=== PATIENT | male | born 1950 | race Caucasian/White ===

== ENCOUNTER 2016-08-31 12:22 | Emergency (ER) | payer BC ==
[~2016-08-31] VITALS: Ht 165.1 cm; Wt 91.6 kg
[2016-08-31 12:28] VITALS: BP_SYST 134
[2016-08-31 13:38] LABS: BASOPHILS # (AUTO) 0.2 K/uL (0.0-0.2); BASOPHILS % (AUTO) 1.8 % (0.0-2.0); EOSINOPHILS # (AUTO) 0.1 K/uL (0.0-0.4); EOSINOPHILS % (AUTO) 0.6 % (0.0-4.0); HEMATOCRIT 46.1 % (36-54); LYMPHOCYTES # (AUTO) 1.5 K/uL (1.0-5.5); LYMPHOCYTES % (AUTO) 14.3 % (20.5-51.5); MEAN CORPUSCULAR HEMOGLOBIN 31 pg (27-31); MEAN CORPUSCULAR HGB CONC 33 % (32-36); MEAN CORPUSCULAR VOLUME 96 fL (79.0-98.0); MONOCYTES # (AUTO) 0.6 K/uL (0.0-1.0); MONOCYTES % (AUTO) 5.2 % (1.7-9.3); NEUTROPHILS # (AUTO) 8.4 K/uL (1.8-7.7); NEUTROPHILS % (AUTO) 78.1 % (40.0-70.0); PLATELET COUNT (AUTO) 194 K/uL (130-430); RED BLOOD CELL COUNT(AUTO) 4.79 MIL/uL (4.2-6.2); RED CELL DISTRIBUTION WIDTH 12.3 % (9.0-15.0); WHITE BLOOD COUNT (AUTO) 10.8 K/uL (4.8-10.8)
[2016-08-31 13:45] LABS: CALCIUM 8.8 mg/dL (8.4-11.0); CREATININE 0.78 mg/dL (0.55-1.30)
[2016-08-31 13:48] LABS: INR 1.1 (0.80-1.20); PROTHROMBIN TIME 11.4 SECS (9.5-12.5)
[2016-08-31 13:50] LABS: ALBUMIN 3.8 g/dL (3.4-4.8); TOTAL BILIRUBIN 0.7 mg/dL (0.0-1.0); TOTAL PROTEIN, SERUM 7.1 g/dL (6.4-8.3)
[2016-08-31 14:26] VITALS: BP_SYST 120
== END 2016-08-31 14:26 | disposition home or self-care (01) ==
LOC: SED 12:22
DX: R04.0 Epistaxis (principal); K21.9 Gastro-esophageal reflux disease without esophagitis; I10 Essential (primary) hypertension; Z97.8 Presence of other specified devices
CPT/HCPCS: 36415; 80053; 84484; 85025; 85610-TC; 85730-TC; 99284

== ENCOUNTER 2021-05-07 17:47 | Emergency (ER) | payer BC ==
[~2021-05-07] VITALS: Ht 167.6 cm; Wt 99.8 kg
[2021-05-07 17:52] VITALS: BP_SYST 119
--- NOTE | 2021-05-07 18:02 | NUR ---
pt presents by self pov using radial saw and cut his right hand by accident. dr hawk at bedside visulaize lac bw 2nd and 3rd digit dorsum of hand
[2021-05-07] MEDS ORDERED: DIPH-TET-PERTUS Vaccine 0.5 ML VIAL (ADACEL) I.M. ONE (18:15)
[2021-05-07] MEDS ORDERED: LIDOCAINE 1% 10 MG/ML, 20 ML MDV INJ ONE (18:30)
--- NOTE | 2021-05-07 19:11 | NUR ---
got report from nicholas the nurse and pt has no sign of distress noted
--- NOTE | 2021-05-07 19:16 | NUR ---
REPORT TO ORLIN FERNANDEZ
--- NOTE | 2021-05-07 20:08 | NUR ---
PATIENT RESTING IN BED WITH EYES OPEN, NO C/O PAIN OR S/S OF DISCOMFORT. PATIENT'S CHEST RISE AND FALL SYMMETRICAL. BED IN LOW AND LOCKED POSITION.
--- NOTE | 2021-05-07 20:34 | NUR ---
DR. DELGADO PERFORMED LACERATION SUTURING. PATIENT TOLERATED PROCEDURE. PATIENT'S RIGHT HAND CLEANED AND DRESSED WITH STERILE GAUZE, UTILIZING ASEPTIC TECHNIQUE. PATIENT STATES PAIN IS "0/10."
[2021-05-07 20:55] VITALS: BP_SYST 115
--- NOTE | 2021-05-07 20:57 | NUR ---
PATIENT VERBALIZED UNDERSTANDING OF AFTERCARE INSTRUCTIONS, NO FURTHER QUESTIONS. PATIENT LEFT WITH ALL BELONGINGS. PATIENT A/OX4, NO C/O PAIN, AND PATIENT HAS STRONG GAIT.
== END 2021-05-07 20:55 | disposition home or self-care (01) ==
LOC: SED 17:47
DX: S61.411A Laceration without foreign body of right hand, initial encounter (principal); I10 Essential (primary) hypertension; K21.9 Gastro-esophageal reflux disease without esophagitis; W45.8XXA Other foreign body or object entering through skin, initial encounter; Y93.89 Activity, other specified; Y92.098 Other place in other non-institutional residence as the place of occurrence of the external cause; Y99.8 Other external cause status
CPT/HCPCS: 12002; 73120; 90471; 90715; 99283; J2001

== ENCOUNTER 2023-03-17 16:32 | Observation (INO) | payer BC ==
[~2023-03-17] VITALS: Ht 165.1 cm; Wt 102.1 kg
[2023-03-17 16:35] VITALS: BP_SYST 158; PULSE 85; RESP 19; TEMP 98; O2SAT 98
[2023-03-17] MEDS ORDERED: TAMS-11 PO ×2 (16:56→20:32)
[2023-03-17] MEDS ORDERED: METO25TA6 PO ×2 (16:56→20:32)
[2023-03-17] MEDS ORDERED: NEU300 PO ×2 (16:56→20:32)
[2023-03-17] MEDS ORDERED: ASPI-859 PO (16:56)
[2023-03-17] MEDS ORDERED: LOSA25TA18 PO (16:56)
[2023-03-17] MEDS ORDERED: HYDR-3917 PO ×2 (16:56→20:32)
[2023-03-17] MEDS ORDERED: LIP40 PO ×2 (16:56→20:32)
[2023-03-17 17:10] LABS: BASOPHILS % (AUTO) 0.5 % (0.0-2.0); EOSINOPHILS % (AUTO) 0.2 % (0.0-4.0); HEMATOCRIT 48.2 % (36-54); HEMOGLOBIN 16.9 g/dL (14.0-18.0); LYMPHOCYTES # (AUTO) 1.5 K/uL (1.0-5.5); LYMPHOCYTES % (AUTO) 16.3 % (20.5-51.5); MEAN CORPUSCULAR HEMOGLOBIN 34 pg (27-31); MEAN CORPUSCULAR HGB CONC 35 % (32-36); MEAN CORPUSCULAR VOLUME 97 fL (79.0-98.0); MONOCYTES # (AUTO) 0.7 K/uL (0.0-1.0); MONOCYTES % (AUTO) 7.5 % (1.7-9.3); NEUTROPHILS # (AUTO) 6.9 K/uL (1.8-7.7); NEUTROPHILS % (AUTO) 75.5 % (40.0-70.0); PLATELET COUNT (AUTO) 223 K/uL (130-430); RED BLOOD CELL COUNT(AUTO) 4.98 MIL/uL (4.2-6.2); RED CELL DISTRIBUTION WIDTH 13.7 % (9.0-15.0); WHITE BLOOD COUNT (AUTO) 9.2 K/uL (4.8-10.8)
[2023-03-17 17:32] LABS: INR 1.1 (0.80-1.20); PROTHROMBIN TIME 11.4 SECS (9.5-12.5)
[2023-03-17 17:37] LABS: ANION GAP 12 (5-15); CALCIUM 9.5 mg/dL (8.4-11.0); CARBON DIOXIDE 26 mmol/L (23-29); CHLORIDE 105 mmol/L (98-107); CREATININE 1.05 mg/dL (0.55-1.30); GLUCOSE 93 mg/dL (74-106); POTASSIUM 3.9 mmol/L (3.5-5.1); SODIUM SERUM 143 mmol/L (136-145); UREA NITROGEN, BLOOD 12 mg/dL (8-21)
[2023-03-17 18:17] LABS: INFLUENZA TYPE A Negative (NEGATIVE); INFLUENZA TYPE B NEGATIVE (NEGATIVE)
[2023-03-17] MEDS ORDERED: ONDANSETRON HCL 4 MG/2 ML VIAL IVP PRN (19:15)
[2023-03-17] MEDS ORDERED: ACETAMINOPHEN 325 MG TABLET PO PRN ×2 (19:15)
[2023-03-17] MEDS ORDERED: ASPIRIN 81 MG TAB.CHEW PO ONE (19:15)
[2023-03-17] MEDS ORDERED: HYDROcodone/ACETAMIN 5-325 MG TAB (NORCO/ VICODIN) PO PRN (19:15)
[2023-03-17] MEDS ORDERED: HYDROcodone/ACETAMIN 10-325 MG TAB PO PRN (19:15)
[2023-03-17] MEDS ORDERED: MORPHINE 4 MG INJ. 4 MG/ML VIAL IVP PRN (19:15)
[2023-03-17] MEDS ORDERED: ASPI-1393 PO (20:32)
[2023-03-17] MEDS ORDERED: LOSA-412 PO (20:32)
[2023-03-18] MEDS ORDERED: ACETAMINOPHEN 325 MG TABLET ONE (01:18)
[2023-03-18 05:23] LABS: BASOPHILS % (AUTO) 0.5 % (0.0-2.0); EOSINOPHILS # (AUTO) 0.1 K/uL (0.0-0.4); EOSINOPHILS % (AUTO) 1.3 % (0.0-4.0); HEMATOCRIT 44.4 % (36-54); HEMOGLOBIN 15.5 g/dL (14.0-18.0); LYMPHOCYTES # (AUTO) 1.9 K/uL (1.0-5.5); LYMPHOCYTES % (AUTO) 21.2 % (20.5-51.5); MEAN CORPUSCULAR HEMOGLOBIN 34 pg (27-31); MEAN CORPUSCULAR HGB CONC 35 % (32-36); MEAN CORPUSCULAR VOLUME 98 fL (79.0-98.0); MONOCYTES # (AUTO) 0.8 K/uL (0.0-1.0); MONOCYTES % (AUTO) 8.9 % (1.7-9.3); NEUTROPHILS # (AUTO) 6.3 K/uL (1.8-7.7); PLATELET COUNT (AUTO) 212 K/uL (130-430); RED BLOOD CELL COUNT(AUTO) 4.56 MIL/uL (4.2-6.2); RED CELL DISTRIBUTION WIDTH 13.5 % (9.0-15.0); WHITE BLOOD COUNT (AUTO) 9.2 K/uL (4.8-10.8)
[2023-03-18 06:01] LABS: ALANINE AMINOTRANSFERASE 44 U/L (12-78); ALBUMIN 3.4 g/dL (3.4-4.8); ANION GAP 11 (5-15); ASPARTATE AMINOTRANSFERASE 27 U/L (10-37); CARBON DIOXIDE 27 mmol/L (23-29); CHLORIDE 103 mmol/L (98-107); CREATININE 0.91 mg/dL (0.55-1.30); GLUCOSE 77 mg/dL (74-106); POTASSIUM 3.7 mmol/L (3.5-5.1); SODIUM SERUM 141 mmol/L (136-145); TOTAL BILIRUBIN 0.8 mg/dL (0.0-1.0); TOTAL PROTEIN, SERUM 6.5 g/dL (6.4-8.3); UREA NITROGEN, BLOOD 12 mg/dL (8-21)
[2023-03-18] MEDS ORDERED: ASPIRIN 81 MG TABLET(ECOTRIN) PO SCH (09:00)
[2023-03-18 11:04] LABS: NEUTROPHILS % (AUTO) 68.1 % (40.0-70.0)
[2023-03-18 12:00] VITALS: BP_SYST 132; PULSE 82; RESP 18; TEMP 98; O2SAT 97
[2023-03-18 13:48] VITALS: BP_SYST 137; PULSE 79; RESP 18; TEMP 98
[2023-03-18 14:20] VITALS: BP_SYST 131; PULSE 78; RESP 18; TEMP 98; O2SAT 97
== END 2023-03-18 15:00 | disposition home or self-care (01) ==
LOC: SED 16:32 → STU 19:06
PROVIDERS: ADMIT Family Medicine; ATTEND Family Medicine
DX: R07.89 Other chest pain (principal); Z20.822 Contact with and (suspected) exposure to COVID-19; R00.2 Palpitations; I10 Essential (primary) hypertension; I25.10 Atherosclerotic heart disease of native coronary artery without angina pectoris; E78.5 Hyperlipidemia, unspecified; K21.9 Gastro-esophageal reflux disease without esophagitis; I25.2 Old myocardial infarction; Z79.82 Long term (current) use of aspirin; Z79.899 Other long term (current) drug therapy
CPT/HCPCS: 80048; 83880; 85025 ×2; 85610; 85730; 87040; 84484; 36415 ×2; 93005; 71045; 99285; 87804 ×2; 87426; 80053; 93306; G0378 ×2